=== PATIENT | female | born 1990 | race Caucasian/White ===

== ENCOUNTER → 2019-03-19 | Outpatient (CLI) | payer OTHER ==
[2019-03-20 09:06] LABS: Candida species (DNA Probe) Negative (NEGATIVE); G. vaginalis (DNA Probe) Negative (NEGATIVE); T. vaginalis (DNA Probe) Negative (NEGATIVE)
== END ==
LOC: LAB SHORT 15:54 → LAB 15:54
PROVIDERS: Nurse Practitioner Family
DX: N94.10 Unspecified dyspareunia (principal)
CPT/HCPCS: 87480; 87510; 87660

== ENCOUNTER 2019-06-20 12:37 | Emergency (ER) | payer OTHER ==
[~2019-06-20] VITALS: Ht 177.8 cm; Wt 73.5 kg
[2019-06-20] MEDS ORDERED: ONDA4ODT MM (14:47)
[2019-06-20] MEDS ORDERED: Robaxin-750750 MG PO (14:47)
[2019-06-20] MEDS ORDERED: Percocet 5-3251 EACH PO (14:47)
== END 2019-06-20 15:50 | disposition home or self-care (01) ==
LOC: ER 12:37
DX: M54.5 Low back pain (principal); M54.6 Pain in thoracic spine; W11.XXXA Fall on and from ladder, initial encounter
CPT/HCPCS: 72128; 72131; J1170; J2405

== ENCOUNTER → 2021-03-24 | Outpatient (CLI) | payer OTHER ==
[~2021-03-24] MED LIST: ONDA4ODT MM; Percocet 5-3251 EACH PO; Robaxin-750750 MG PO
[2021-03-29 15:11] LABS: HPV 16 Negative (Negative); HPV 18 Negative (Negative); HPV OTHER HR TYPES Negative (Negative)
== END ==
LOC: LAB SHORT 11:20
PROVIDERS: Registered Nurse Community Health
DX: Z12.4 Encounter for screening for malignant neoplasm of cervix (principal)
CPT/HCPCS: 87624; G0123

== ENCOUNTER 2021-06-07 08:34 | Day surgery (SDC) | payer OTHER ==
[~2021-06-07] VITALS: Ht 175.3 cm; Wt 79.4 kg
== END 2021-06-07 12:08 | disposition home or self-care (01) ==
LOC: ORSCSDS 08:34
PROVIDERS: Obstetrics & Gynecology
PROC: 0UDB8ZX Extraction of Endometrium, Via Natural or Artificial Opening Endoscopic, Diagnostic (ICD-10-PCS; principal; 2021-06-07 10:00)
PROC: 0U5B8ZZ Destruction of Endometrium, Via Natural or Artificial Opening Endoscopic (ICD-10-PCS; principal; 2021-06-07 10:00)
DX: N92.0 Excessive and frequent menstruation with regular cycle (principal)
CPT/HCPCS: J0690; J2250; J2704; J3010; J7120